=== PATIENT | male | born 1970 | race Caucasian/White ===

== ENCOUNTER → 2018-09-09 | Outpatient (CLI) | payer SELFPAY | LOC: AMB 11:01 | PROVIDERS: ATTEND Nurse Practitioner | DX: S31.134A Puncture wound of abdominal wall without foreign body, left lower quadrant without penetration into peritoneal cavity, initial encounter (principal); N50.811 Right testicular pain; M54.6 Pain in thoracic spine; W32.0XXA Accidental handgun discharge, initial encounter; Y92.039 Unspecified place in apartment as the place of occurrence of the external cause | CPT/HCPCS: A0425; A0427 ==

== ENCOUNTER → 2018-09-09 | Outpatient (REF) | LOC: AMB 13:08 | PROVIDERS: ATTEND Nurse Practitioner | DX: Z02.9 Encounter for administrative examinations, unspecified (principal) ==

== ENCOUNTER → 2018-09-09 | Emergency (ER) | payer SELFPAY ==
[~2018-09-09] MED LIST: DIPHTH/TETANUS/ACEL. PERTUSSIS IM ONLY ONE; IOPAMIDOL 76% 100 ML INFUS BTL 100 ML ONE; NS(*) 0.9% 1000 ML BAG 1,000 ML IV ONE; PIPERACILLIN/TAZO* 4.5 GM VIAL 4.5 GM in NS(*) 0.9% 100 ML ADDVANT BAG 100 ML IVPB ONE; ceFAZolin(*) 2GM/D5W 50ML 50 ML IVPB ONE; fentaNYL CITR 100 MCG/2 ML AMP IVP ONE; fentaNYL CITR 100 MCG/2 ML AMP ONE
[2018-09-09 11:55] LABS: PLATELET COUNT, AUTOMATED 377 K/uL (150-450)
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
[2018-09-09 13:00] VITALS: BP 126/79
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
== END ==
LOC: EDBD 11:17 → ER 11:17
DX: S31.103A Unspecified open wound of abdominal wall, right lower quadrant without penetration into peritoneal cavity, initial encounter (principal); S36.119A Unspecified injury of liver, initial encounter; W33.01XA Accidental discharge of shotgun, initial encounter
CPT/HCPCS: 36415; 36600; 71045; 71260; 72170; 74177; 81001; 82803; 83605; 83690; 85025; 85610; 85730; 86850; 86900; 86901; 86920; 90715; 96361; 96365; 96375; 99291; 99292; C1758; J2543; J3010; J7030; J7050; P9016; Q9967; 82040; 82247; 82310; 82374; 82435; 82565; 82947; 84075; 84132; 84155; 84295; 84450; 84460; 84520; 90471